=== PATIENT | female | born 1960 | race Caucasian/White ===

== ENCOUNTER 2018-09-18 15:09 | Emergency (ER) | payer BC ==
--- NOTE | 2018-09-18 15:37 | ED ---
HPI Chest Pain - HPI Summary HPI Summary: This patient is a 57 year old F brought in by EMS accompanied by a male with a chief complaint of mid-sternal, pressure CP since 13:20. The patient rates the pain 4/10 in severity. Patient reports fatigue, difficulty ambulating due to fatigue, diaphoresis, abdominal pain, paleness in her face, anxiety, constipation, and frequent urge to defecate. Patient denies SOB, nausea, vomiting, or PACHECO. The patient was given 2 Nitro, 4 Aspirin, and fluids en route with EMS. The CP went down in the ambulance but is coming back while in the ED. The patient feels like she will pass out. The patient was concerned that she might today. She took Doculax CROSSCUTTER ROLLED GLASS so that she can have a BM, without success. PMHX HLD, B12 deficiency, Ablation, tonsil removal, arm surgeries. No PMHx appendectomy, gallbladder removal. 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 Vitals in the room: HR 73 bpm, BP 109/67. - History of Current Complaint Chief Complaint: EDChestPainROMI Time Seen by Provider: 09/18/18 15:15 Hx Obtained From: Patient Onset/Duration: Started Hours Ago Timing: Intermittent Current Severity: Moderate Pain Intensity: 4 Pain Scale Used: 0-10 Numeric Chest Pain Location: Mid Sternal Character: Pressure/Squeezing Associated Signs and Symptoms: Positive: Chest Pain, Anxiety, Recent Stress, Weakness, Diaphoresis, Abdominal Pain. Negative: Headaches, Shortness of Breath , Syncope, Nausea, Vomiting - Allergy/Home Medications Allergies/Adverse Reactions: Allergies Allergy/AdvReac Type Severity Reaction Status Date / Time terconazole Allergy Intermediate Rash Verified 09/18/18 17:08 environmental/seasonal Allergy Congestion Uncoded 01/27/15 11:52 hayfever Home Medications: Home Medications Cyanocobalamin TAB* [Vitamin B12 TAB*] 500 mcg PO DAILY 09/18/18 [History Confirmed 09/18/18] Estradiol PATCH 0.05MG/DAY* [Climara PATCH 0.05 MG/DAY*] 0.05 mg TOPICAL .TWICE A WEEK 09/18/18 [History Confirmed 09/18/18] Multivitamins/Minerals TAB* [Theragran/minerals TAB*] 1 tab PO DAILY 09/18/18 [ History Confirmed 09/18/18] Progesterone CAP (NF) [Prometrium (NF)] 100 mg PO DAILY 09/18/18 [History Confirmed 09/18/18] Rosuvastatin (NF) [Crestor (NF)] 5 mg PO DAILY 09/18/18 [History Confirmed 09/18] PMH/Surg Hx/FS Hx/Imm Hx Endocrine/Hematology History: Denies: Hx Diabetes Cardiovascular History: Reports: Hx Angina, Other Cardiovascular Problems/ Disorders - ABLATION FOR TACHYCARDIA 2009 Denies: Hx Hypertension, Hx Pacemaker/ICD Respiratory History: Reports: Hx Asthma - SEASONAL, Hx Seasonal Allergies Denies: Hx Chronic Obstructive Pulmonary Disease (COPD), Other Respiratory Problems/Disorders GI History: Denies: Other GI Disorders History: Denies: Other Problems/Disorders Musculoskeletal History: Reports: Hx Arthritis - RIGHT HIP, Hx Tendonitis - JOSE CARLOS HANDS Sensory History: Reports: Hx Contacts or Glasses - GLASSES Denies: Hx Hearing Aid Opthamlomology History: Reports: Hx Contacts or Glasses - GLASSES Neurological History: Reports: Other Neuro Impairments/Disorders Psychiatric History: Denies: Hx Panic Disorder - Surgical History Surgery Procedure, Year, and Place: [facility], TUBAL LIG[facility] 1999, [facility] 06/18 AND REVISION 01/18 [facility] 10/2013 LEFT ULNA SHORTENING [facility] 07/22 REVISION LEFT ULNAR NERVE SURGERY (PT STATES SHE HAS HAD SEVERAL SURGERIES TO LEFT HAND/WRIST/FOREARM AREA) Hx Anesthesia Reactions: No Infectious Disease History: No Infectious Disease History: Denies: Traveled Outside the [place] in Last 30 Days - Family History Known Family History: Positive: Cardiac Disease - Social History Occupation: Employed Full-time Alcohol Use: Rare Substance Use Type: Reports: None Smoking Status (MU): Former Smoker Type: Cigarettes Amount Used/How Often: 1 PACK PER WEEK Length of Time of Smoking/Using Tobacco: 25 YEARS OFF AND ON Have You Smoked in the Last Year: No Review of Systems Positive: Fatigue, Skin Diaphoresis Positive: Chest Pain - mid sternal Negative: Shortness Of Breath Positive: Abdominal Pain, Other - constipation, urge to defecate. Negative: Vomiting, Nausea Positive: Decreased ROM - difficulty ambulating due to weakness Positive: Other - paleness in face Negative: Headache Positive: Anxious All Other Systems Reviewed And Are Negative: Yes Physical Exam - Summary Physical Exam Summary: Appearance: The patient is well-nourished in no acute distress and in no acute pain. Skin: The skin is warm and dry and skin color reflects adequate perfusion. HEENT: The head is normocephalic and atraumatic. The pupils are equal and reactive. The conjunctivae are clear and without drainage. Nares are patent and without drainage. Mouth reveals moist mucous membranes and the throat is without erythema and exudate. The external ears are intact. The ear canals are patent and without drainage. The tympanic membranes are intact. Neck: The neck is supple with full range of motion and non-tender. There are no carotid bruits. There is no neck vein distension. Respiratory: Chest is non-tender. Lungs are clear to auscultation and breath sounds are symmetrical and equal. Cardiovascular: Heart is regular rate and rhythm. There is no murmur or rub auscultated. There is no peripheral edema and pulses are symmetrical and equal. Abdomen: The abdomen is soft and non-tender. There are normal bowel sounds heard in all four quadrants and there is no organomegaly palpated. Musculoskeletal: There is no back tenderness noted. Extremities are non-tender with full range of motion. There is good capillary refill. There is no peripheral edema or calf tenderness elicited. Neurological: Patient is alert and oriented to person, place and time. The patient has symmetrical motor strength in all four extremities. Cranial nerves are grossly intact. Deep tendon reflexes are symmetrical and equal in all four extremities. Psychiatric: The patient has an appropriate affect and does not exhibit any anxiety or depression. Triage Information Reviewed: Yes Vital Signs On Initial Exam: Initial Vitals Temp Pulse Resp BP Pulse Ox 97.6 F 72 19 102/65 98 09/18/18 15:19 09/18/18 15:19 09/18/18 15:19 09/18/18 15:19 09/18/18 15:19 Vital Signs Reviewed: Yes Diagnostics - Vital Signs Vital Signs Temp Pulse Resp BP Pulse Ox 09/18/18 15:29 70 21 98 09/18/18 15: 97.6 F 72 19 102/65 98 - Laboratory Result Diagrams: 09/18/18 15:32 09/18/18 15:32 Lab Statement: Any lab studies that have been ordered have been reviewed, and results considered in the medical decision making process. - Radiology CXR Radiology Interpretation Completed By: Radiologist Summary of Radiographic Findings: No evidence for acute disease. ED physician has reviewed this report. - EKG 15:53 Cardiac Rate: NL - 69 bpm EKG Rhythm: Sinus Rhythm ST Segment: Normal Chest Pain Course/Dx - Course Course Of Treatment: Ms. Payne presented with severe chest pain that started about 1:30. 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 She appeared to be in some distress but had stable vital signs and was nontoxic in appearance on arrival. Labs were obtained including a troponin which was normal and she was given Zofran for her nausea as well as Protonix. These medications did not help much for the pain but did help her nausea and she was able to take sucralfate at that point. The sucralfate did help significantly and she requested some crackers. In the crackers seem to help her even more. A delayed troponin came back also at 0. This seems to be a reflux problem and I recommended a short course of sucralfate and follow-up with her PCP. - Diagnoses Provider Diagnoses: GERD (gastroesophageal reflux disease) Discharge - Sign-Out/Discharge Documenting (check all that apply): Patient Departure - discharge - Discharge Plan Condition: Stable Disposition: HOME Prescriptions: Sucralfate TAB* [Carafate*] 1 gm PO QID #40 tab Patient Education Materials: Gastroesophageal Reflux Disease (ED) Referrals: [facility] [place] [facility]ERR[facility] [Outside] - 3 Days Additional Instructions: Follow up with your primary care physician in 2-3 days. RETURN TO THE EMERGENCY DEPARTMENT FOR NEW OR WORSENING SYMPTOMS. - Billing Disposition and Condition Condition: STABLE Disposition: Home - Attestation Statements Document Initiated by Sergo: Yes Documenting Scribe: Hema Tang Provider For Whom Sergo is Documenting (Include Credential): Nestor Santo MD Scribe Attestation: Hema Salazar, scribed for Nestor Santo MD on 09/18/18 at 2110. Scribe Documentation Reviewed: Yes Provider Attestation: The documentation as recorded by the Hema patino accurately reflects the service I personally performed and the decisions made by me, Nestor Santo MD Status of Scribe Document: Viewed
[2018-09-18 16:32] LABS: ABS Basophils 0.1 10^3/ul (0-0.2); ABS Eosinophils 0.1 10^3/ul (0-0.6); ABS Lymphocytes 1.2 10^3/ul (1.0-4.8); ABS Monocytes 0.7 10^3/ul (0-0.8); ABS Neutrophils 11.7 10^3/ul (1.5-7.7); ABS Nucleated RBC 0 10^3/ul; Eosinophil % 0.8 %; Hematocrit 40 % (35-47); Hemoglobin 13.6 g/dl (12.0-16.0); Lymphocyte % 8.7 %; Mean Corpuscular HGB Conc 34 g/dl (31-36); Mean Corpuscular Hemoglobin 29 pg (27-31); Mean Corpuscular Volume 87 fL (80-97); Mean Platelet Volume 8.1 fL (7.4-10.4); Nucleated Red Blood Cells % 0; Platelet Count 240 10^3/ul (150-450); Red Blood Count 4.65 10^6/ul (4.00-5.40); Red Cell Distribution Width 13 % (10.5-15); White Blood Count 13.8 10^3/ul (3.5-10.8)
[2018-09-18 16:40] LABS: INR 0.85 (0.77-1.02)
[2018-09-18 16:48] LABS: Albumin 4.3 g/dL (3.2-5.2); BUN/Creatinine Ratio 22.4 (8-20); Calcium 9.3 mg/dL (8.6-10.3); EGFR Non-African American 69.4 (>60); Globulin 2.1 g/dL (2-4); Total Bilirubin 0.9 mg/dL (0.2-1.0); Total Protein 6.4 g/dL (6.4-8.9)
[2018-09-18] MEDS ORDERED: Ondansetron INJ* 2 MG/ML VIAL IV ONE (17:10)
[2018-09-18] MEDS ORDERED: Pantoprazole IV* 40 MG IV ONE (17:10)
[2018-09-18 17:28] LABS: TSH (Thyroid Stimulating Horm) 0.83 mcIU/mL (0.34-5.60)
[2018-09-18] MEDS ORDERED: Sucralfate TAB* 1 GM PO ONE (18:03)
[2018-09-18 18:44] LABS: Urine Appearance Clear; Urine Bilirubin Negative (Negative); Urine Blood Negative (Negative); Urine Color Yellow; Urine Glucose Negative (Negative); Urine Ketones Negative (Negative); Urine Nitrite Negative (Negative); Urine Protein Negative (Negative); Urine Specific Gravity 1.012 (1.010-1.030); Urine Urobilinogen Negative (Negative)
[2018-09-18 21:01] VITALS: BP 114/61
== END 2018-09-18 21:03 | disposition home or self-care (01) ==
LOC: ED 15:09
DX: K21.9 Gastro-esophageal reflux disease without esophagitis (principal); R53.83 Other fatigue; R61 Generalized hyperhidrosis; Z87.891 Personal history of nicotine dependence
CPT/HCPCS: 36415; 71045; 80053; 81003; 83605; 84443; 84484; 85025; 85379; 85610; 93005; 96374; 96375; 99284; A9270-GY; J2405